=== PATIENT | female | born 1945 | race Caucasian/White ===

== ENCOUNTER 2023-01-16 04:56 | Day surgery (SDC) | payer MEDICARE ==
[2023-01-12 12:07] VITALS: BMI 29.4
[2023-01-16] MEDS ORDERED: FENTANYL CITRATE/PF 50 MCG/ML VIAL ONE ×5 (10:18→12:37)
[2023-01-16] MEDS ORDERED: PROPOFOL 20 ML ONE (10:18)
[2023-01-16] MEDS ORDERED: GLYCOPYRROLATE 0.2 MG/1 ML VIAL ONE (10:35)
[2023-01-16] MEDS ORDERED: MIDAZOLAM HCL 2 MG/2 ML SINGLE DOSE VIAL ONE (10:35)
[2023-01-16] MEDS ORDERED: ONDANSETRON 4 MG/2 ML VIAL IVPUSH PRN (10:41)
[2023-01-16] MEDS ORDERED: GENTAMICIN SO4 80 MG/2 ML VIAL ONE (10:43)
[2023-01-16] MEDS ORDERED: BACITRACIN ZINC 15 GM TUBE TOPICAL OINTMENT ONE (10:43)
[2023-01-16] MEDS ORDERED: GENTAMICIN SO4 80 MG/2 ML VIAL IVPB ONE (10:53)
[2023-01-16] MEDS ORDERED: ceFAZolin SODIUM 1 GM VIAL IVPB ONE (10:53)
[2023-01-16] MEDS ORDERED: LIDOCAINE 1%/EPI 1:100000 (50 ML MULTI DOSE VIAL) INF ONE (10:57)
[2023-01-16 13:03] VITALS: RESP 18
[2023-01-16 16:22] VITALS: BP 103/73; PULSE 79; TEMP 97.4
== END 2023-01-16 16:25 | disposition home or self-care (01) ==
LOC: JASU-SURG 04:56
PROVIDERS: ATTEND Urology
PROC: 0TSD0ZZ Reposition Urethra, Open Approach (ICD-10-PCS; principal; 2023-01-16 09:30)
DX: N39.3 Stress incontinence (female) (male) (principal)
CPT/HCPCS: 57288; C1771; 82962; 94760

== ENCOUNTER → 2023-11-20 | Day surgery (SDC) | payer MEDICARE, OTHER ==
[2023-11-17 17:46] VITALS: BMI 28.2
[2023-11-20 13:02] VITALS: BP 134/78; PULSE 75; RESP 20; TEMP 97.5
== END | disposition home or self-care (01) ==
LOC: JASU-SURG 04:27
PROVIDERS: ATTEND Urology
DX: Z53.8 Procedure and treatment not carried out for other reasons (principal)
CPT/HCPCS: 82962

== ENCOUNTER 2023-12-18 04:12 | Day surgery (SDC) | payer MEDICARE, OTHER ==
[2023-12-15 08:54] VITALS: BMI 28.7
[2023-12-18] MEDS ORDERED: LIDOCAINE HCL/PF 2% SDV 5ML VIAL ONE (09:33)
[2023-12-18] MEDS ORDERED: PROPOFOL 20 ML ONE (09:33)
[2023-12-18] MEDS ORDERED: MIDAZOLAM HCL 2 MG/2 ML SINGLE DOSE VIAL ONE (09:33)
[2023-12-18] MEDS ORDERED: DEXAMETHASONE SOD PHOSPHATE 4 MG/1 ML VIAL ONE (09:54)
[2023-12-18] MEDS ORDERED: KETOROLAC TROMETHAMINE 30 MG/1 ML VIAL ONE (09:54)
[2023-12-18] MEDS ORDERED: ONDANSETRON 4 MG/2 ML VIAL ONE (09:54)
[2023-12-18] MEDS ORDERED: ceFAZolin SODIUM 1 GM VIAL ONE (09:54)
[2023-12-18] MEDS: ceFAZolin SODIUM 1 GM VIAL IVPB ONE (10:01)
[2023-12-18] MEDS ORDERED: oxyCODONE HCL 5 MG TABLET PO PRN ×2 (10:03)
[2023-12-18] MEDS ORDERED: PROMETHAZINE HCL 25 MG/1 ML VIAL IVPB PRN (10:03)
[2023-12-18] MEDS ORDERED: ONDANSETRON 4 MG/2 ML VIAL IVPUSH PRN (10:03)
[2023-12-18] MEDS ORDERED: ACETAMINOPHEN INJECTION 100 ML ONE (10:31)
[2023-12-18] MEDS: ACETAMINOPHEN 1000 MG/100 ML BAG IVPB ONE (10:32)
[2023-12-18] MEDS: LACTATED RINGERS SOLUTION 1,000 ML IV SCH (10:33)
[2023-12-18 11:43] VITALS: RESP 18; TEMP 96.9
[2023-12-18 13:53] VITALS: BP 122/63; PULSE 74
== END 2023-12-18 12:35 | disposition home or self-care (01) ==
LOC: JASU-SURG 04:12
PROVIDERS: ATTEND Urology
PROC: 0UPH7YZ Removal of Other Device from Vagina and Cul-de-sac, Via Natural or Artificial Opening (ICD-10-PCS; principal; 2023-12-18 09:30)
DX: T83.711A Erosion of implanted vaginal mesh to surrounding organ or tissue, initial encounter (principal); Y76.8 Miscellaneous obstetric and gynecological devices associated with adverse incidents, not elsewhere classified; Y92.9 Unspecified place or not applicable
CPT/HCPCS: 88300-TC; 94760; J0131